=== PATIENT | male | born 1950 | race Caucasian/White ===

== ENCOUNTER 2024-07-07 10:42 | Day surgery (SDC) | payer OTHER ==
[2024-07-07] VITALS (10 sets, daily range): BP systolic 114–139; BP diastolic 61–95
[~2024-07-07] VITALS: Ht 175.3 cm; Wt 92.6 kg
[~2024-07-07 10:42] MED LIST: 8 Hour C500 MG PO; AMLO10 PO; Aspir 8181 MG PO; DIPH50 PO; LOSHYD; LOSHYD PO; MELO7.5 PO; MULTI VITAMIN1 EACH PO; Naprosyn500 MG PO; PREG75 PO; Ventolin/Prove6.7 GM
[2024-07-07] MEDS ORDERED: CeFAZolin Sodium 2,000 MG in NS 100 ML IV SCH (11:20)
[2024-07-07] MEDS ORDERED: Lactated Ringer's 1,000 ML IV SCH (11:20)
[2024-07-07] MEDS ORDERED: Tranexamic Acid 1,000 MG in NS 100 ML IV SCH (11:20)
[2024-07-07] MEDS ORDERED: CeFAZolin Sodium 2,000 MG VIAL ONE (11:44)
--- NOTE | 2024-07-07 12:26 | NUR ---
History, Chart, Medications and Allergies reviewed before start of procedure. Pre-Op teaching done. Pt verbalizes understanding. Patient confirms NPO status and agrees with scheduled surgery. PT BELONGINGS BAG PLACED UNDER GURNEY. PT REQUESTED TO LEAVE UNDERWEAR ON. PT PLANS TO REMOVE GLASSES ONCE BACK IN OR. LABELED ZIP LOCK BAG GIVEN TO BENCH WORKER BINDING.
[2024-07-07] MEDS ORDERED: Midazolam HCl 1MG / ML 2ML Vial ONE (14:34)
--- NOTE | 2024-07-07 14:40 | NUR ---
TRINA,HEALTH TYPE TECHNICIAN AT BEDSIDE. TIME OUT FOR AXILLARY BLOCK. PT HAS 3L 02 VIA NC ON AND SA02 PROBE ON. VERSED GIVEN BY TRINA.
--- NOTE | 2024-07-07 14:47 | NUR ---
AXILLARY BLOCK COMPLETE
[2024-07-07] MEDS ORDERED: Bupivacaine 0.5% HCl 5 MG/ML 30MLVIAL ONE (14:49)
--- NOTE | 2024-07-07 14:53 | NUR ---
PT GLASSES TO PACU
[2024-07-07] MEDS ORDERED: propofoL 20 ML IV ONE (14:54)
[2024-07-07] MEDS ORDERED: FentaNYL Citrate 50 MCG/ML 2 ML Injection ONE ×2 (14:55→15:15)
[2024-07-07] MEDS ORDERED: EpiNEPhrine 1 MG/1 ML 1ML Vial ONE (15:00)
[2024-07-07] MEDS ORDERED: Ondansetron HCl 2 MG / ML 2ML Vial ONE (15:02)
[2024-07-07] MEDS ORDERED: Dexamethasone Sod Phos 10 MG/ML 1ML VIAL ONE (15:02)
[2024-07-07] MEDS ORDERED: HYDROmorphone HCl/Pf 1MG SYR ONE ×2 (15:12→15:13)
[2024-07-07] MEDS ORDERED: Ketorolac Tromethamine 30mg Vial ONE (15:14)
[2024-07-07] MEDS ORDERED: Phenylephrine HCl 100 MCG/ML-NS 10MLSYR (1MG/10ML) ONE (15:34)
[2024-07-07] MEDS ORDERED: OxyCODONE HCL 5 MG TAB PO PRN (16:30)
--- NOTE | 2024-07-07 16:46 | NUR ---
PT TO DAY SURGERY STEP DOWN FROM PACU; PT CARE CONTINUED. PT IS AWAKE, ALERT AND ORIENTED; ABLE TO MOVE SELF IN BED. DENIES PAIN. PT HAS LAZARUS WRAP TO RIGHT HAND THAT EXTENDS PAST ELBOW; C/D/I. PT RIGHT ARM IN SLING. PT ABLE TO MOVE RIGHT WRIST AND FINGERS SLIGHTLY; SKIN IS PINK, WARM AND DRY.
--- NOTE | 2024-07-07 16:55 | NUR ---
PT TOLERATING PO FLUIDS AND CHEESE WELL. ICE PACK GIVEN
--- NOTE | 2024-07-07 17:07 | NUR ---
Discharge instructions reviewed with patient. Patient verbalizes understanding. Copy given to patient to take home. Patient States Post-Procedure ride home has been arranged.
--- NOTE | 2024-07-07 17:28 | NUR ---
Patient up to Ambulate independently. Gait steady. Discharged via wheelchair to private car for ride home.
== END 2024-07-07 17:29 | disposition home or self-care (01) ==
LOC: ORSCMMR 10:42 → ORD 13:00 → ORSCMMR 17:29
PROVIDERS: Orthopaedic Surgery Sports Medicine
PROC: 0LS10ZZ Reposition Right Shoulder Tendon, Open Approach (ICD-10-PCS; principal; 2024-07-07 13:00)
DX: S46.211A Strain of muscle, fascia and tendon of other parts of biceps, right arm, initial encounter (principal); I10 Essential (primary) hypertension; Z87.891 Personal history of nicotine dependence; Z79.82 Long term (current) use of aspirin; Z79.899 Other long term (current) drug therapy
CPT/HCPCS: A9270; C1713; J0171; J0690; J1100; J1171; J1885; J2250; J2371; J2405; J2704; J3010; J7120

== ENCOUNTER 2025-07-11 09:24 | Day surgery (SDC) | payer OTHER ==
[~2025-07-11] VITALS: Ht 175.3 cm; Wt 89.9 kg
[~2025-07-11 09:24] MED LIST changes: +NS 500 ML IV ONE
[2025-07-11] MEDS ORDERED: CeFAZolin Sodium 2,000 MG VIAL ONE (11:23)
[2025-07-11] MEDS ORDERED: TAMS.4ER PO (11:32)
[2025-07-11] MEDS ORDERED: TRAM50 (11:32)
[2025-07-11] MEDS ORDERED: NS 500 ML IV ONE ×2 (11:47→13:24)
--- NOTE | 2025-07-11 12:08 | NUR ---
07/11/25 1208 Sandi Solo PT HAD LOCAL INJECTON ON RIGHT HAND AT 1203. MIX OF 9ML 1%LIDOCAINE W/EPI 1:100,000 W/1 ML SOD BICARB TOTAL 5ML
[2025-07-11] MEDS ORDERED: Midazolam HCl 1MG / ML 2ML Vial ONE (13:11)
[2025-07-11 13:48] VITALS: BP 109/62
--- NOTE | 2025-07-11 13:53 | NUR ---
07/11/25 Felicita3 Nina Hartman PT UP TO RECLINER. PT ABLE TO MAKE NEEDS KNOWN, PT PLEASANT AND COOPERATIVE WITH CARE PROVIDED. PT DENIED ANY PAIN, NO NAUSEA. PT TOLERATING FLUIDS WELL.
== END 2025-07-11 14:07 | disposition home or self-care (01) ==
LOC: ORSCSDS 09:24
PROVIDERS: Orthopaedic Surgery
PROC: 0LN70ZZ Release Right Hand Tendon, Open Approach (ICD-10-PCS; principal; 2025-07-11 12:00)
DX: M65.351 Trigger finger, right little finger (principal); I10 Essential (primary) hypertension; F17.290 Nicotine dependence, other tobacco product, uncomplicated; Z79.899 Other long term (current) drug therapy
CPT/HCPCS: J0690; J2250; J2704; J7040